=== PATIENT | male | born 2000 | race African-American/Black ===

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

== ENCOUNTER 2022-12-11 13:01 | Emergency (ER) | payer MEDICAID ==
[~2022-12-11] VITALS: Ht 182.9 cm; Wt 90.0 kg
[2022-12-11 13:12] VITALS: BP 136/85
== END 2022-12-11 14:11 | disposition left against medical advice (07) ==
LOC: EDBD 13:01 → ER 13:01
DX: R56.9 Unspecified convulsions (principal)